=== PATIENT | male | born 1990 | race Hispanic/Latino ===

== ENCOUNTER 2016-12-19 10:26 | Emergency (ER) | payer OTHER ==
[~2016-12-19] VITALS: Ht 175.3 cm; Wt 102.1 kg
[2016-12-19 10:33] VITALS: BP 134/79
--- NOTE | 2016-12-19 12:01 | ED HEAD/FACIAL INJ COMPLAINT ---
History of Present Illness General Chief Complaint: Skin Rash/ Abcess Stated Complaint: ABCESS ON FACE Source: patient Exam Limitations: no limitations Vital Signs & Intake/Output Vital Signs & Intake/Output Vital Signs Date Time Temp Pulse Resp B/P B/P Pulse O2 O2 Flow FiO2 Mean Ox Delivery Rate 12/19 1033 98.1 80 18 134/79 97 Room Air Room Air Allergies Coded Allergies: No Known Allergies (12/19/16) Reconcile Medications No Known Home Medications Triage Note: TRIAGE: 26 Y/O MALE PRESENTS C/O ?ABCESS TO LEFT CHEEK. REPORTS "I'VE ALWAYS HAD LIKE A LITTLE CYST BACK THERE, BUT NOT THIS BIG." REPORTS PAIN 09/04. Triage Nurses Notes Reviewed? yes Onset: constant, continues in ED, getting worse Severity: severe Location: facial Associated Symptoms: pain/tenderness HPI: Patient presents for evaluation of worsening left facial swelling that began about a week ago. Patient states the area has been getting warm and more prominent. Past History Travel History Traveled to [place] past 21 day No Medical History Any Pertinent Medical History? see below for history Neurological: NONE EENT: NONE Cardiovascular: NONE Respiratory: NONE Gastrointestinal: NONE Hepatic: NONE Renal: NONE Musculoskeletal: NONE Psychiatric: NONE Endocrine: NONE Blood Disorders: NONE Cancer(s): NONE ADMINISTRATIVE SUPERVISOR/Reproductive: NONE Surgical History Surgical History: non-contributory Psychosocial History What is your primary language Telugu Tobacco Use: Never used ETOH Use: occasional use Illicit Drug Use: denies illicit drug use Family History Hx Contributory? No Review of Systems Review of Systems Constitutional: Reports: no symptoms. EENTM: Reports: no symptoms. Respiratory: Reports: no symptoms. Cardiovascular: Reports: no symptoms. GI: Reports: no symptoms. Genitourinary: Reports: no symptoms. Musculoskeletal: Reports: no symptoms. Skin: Reports: see HPI. Neurological/Psychological: Reports: no symptoms. Hematologic/Endocrine: Reports: no symptoms. Immunologic/Allergic: Reports: no symptoms. All Other Systems: Reviewed and Negative Physical Exam Physical Exam General Appearance: see below Cranial Nerves: see below Comments: Gen.: Well-nourished, well-developed, no acute respiratory distress. Head: Normocephalic, atraumatic. Eyes: Normal inspection bilaterally Ears: Normal inspection bilaterally Nose: Normal inspection, nasal cannula in place Throat/mouth : Moist mucosa Face: Fluctuant soft tissue swelling without erythema or appreciable warmth of the angle of the left jaw Neck: Supple, full range of motion, no goiter Heart: Regular rate and rhythm Lungs: Quiet respirations Back: Normal range of motion Extremities: Normal range of motion grossly Neurologic: Cranial nerves grossly intact, speech is clear Skin: warm and dry Psychiatric: Calm, cooperative, no apparent delusions or hallucinations Diagram Head: 1) abscess Progress Differential Diagnosis: abscess Plan of Care: See discharge instructions Departure Departure Disposition: HOME OR SELF CARE Condition: Stable Clinical Impression Primary Impression: Facial abscess Referrals: PATIENT HAS NO PRIMARY CARE DR (PCP/Family) Additional Instructions: Augmentin as prescribed. Ibuprofen 600 mg every 6 hours as needed for pain. Have the wick removed and the abscess reevaluated in 48-72 hours. Return if any concerns or sudden worsening. Departure Forms: Customer Survey General Discharge Information Prescriptions: Current Visit Scripts Augmentin (Augmentin 500-125 Tablet) 1 TAB PO TID #20 TAB Procedures Additional Procedures Additional Procedures: Incision and drainage Progress: Abscess draped and prepped in the usual manner and anesthetized with local infiltration of 1% lidocaine with epinephrine. Good anesthesia was obtained. The abscess was then opened with a #15 scalpel with it initially sick yellow- white drainage obtained. However, a scissor was used to break up multiple internal loculations with additional drainage and ghazal pus obtained. Patient tolerated the procedure well. 1/4 inch iodoform Nu Gauze wick placed.
[2016-12-19] MEDS ORDERED: AUGMENTIN 500-1 EACH PO (13:13)
== END 2016-12-19 13:32 ==
LOC: ERH 10:26
DX: L02.01 Cutaneous abscess of face (principal)